=== PATIENT | female | born 1975 | race Caucasian/White ===

== ENCOUNTER 2019-05-03 22:23 | Emergency (ER) | payer OTHER ==
[2019-05-03 22:32] VITALS: TEMP 98.1; BMI 32.3
--- NOTE | 2019-05-03 23:02 | PDOC ---
History of Present Illness - General Chief Complaint: Urinary Problem Stated Complaint: ABD PAIN Time Seen by Provider: 05/03/19 23:01 History Source: Patient - History of Present Illness Initial Comments: 05/03/19 23:16 43 year old female c/o right groin pain radiating to back and right leg, patient reports that pain has been ongoing after menstrual period ends for the last three months and its always at the right groin. denies urinary symptoms. patient reports shes currently on antibiotics for a dental infection. 05/04/19 02:39 Past History - Past Medical History Allergies/Adverse Reactions: Allergies Allergy/AdvReac Type Severity Reaction Status Date / Time No Known Allergies Allergy Verified 05/04/19 01:35 Home Medications: Ambulatory Orders Albuterol Sulfate Inhaler - [Ventolin HFA Inhaler -] 2 inh PO Q4H PRN #1 inh NS 05/24/14 Asthma: Yes (NOT SINCE 2002) Cancer: No Cardiac Disorders: No COPD: No Diabetes: No HTN: No Seizures: No Thyroid Disease: No - Immunization History Immunization Up to Date: Yes - Suicide/Smoking/Psychosocial Hx Smoking History: Unknown if ever smoked Have you smoked in the past 12 months: No Information on smoking cessation initiated: No Hx Alcohol Use: No Drug/Substance Use Hx: No Hx Substance Use Treatment: No Review of Systems - Review of Systems Able to Perform ROS?: Yes Is the patient limited Turkish proficient: No Constitutional: No: Symptoms Reported, See HPI, Chills, Diaphoresis, Fever, Loss of Appetite, Malaise, Night Sweats, Weakness, Weight Stable, Unintentional Wgt. Loss, Unexplained wgt Loss, Other ABD/GI: Yes: Other (right pelvic pain) : No: Symptoms Reported, See HPI, Burning, Dysuria, Discharge, Frequency, Flank Pain, Hematuria, Incontinence, Pain, Urgency, Testicular Mass, Testicular Swelling, Lesions, Testicular Pain, Other *Physical Exam - Vital Signs Last Vital Signs Temp Pulse Resp BP Pulse Ox 98.1 F 86 16 146/90 100 05/03/19 22:29 05/03/19 22:29 05/03/19 22:29 05/03/19 22:29 05/03/19 22:29 - Physical Exam General Appearance: Yes: Appropriately Dressed Respiratory/Chest: positive: Lungs Clear, Normal Breath Sounds Gastrointestinal/Abdominal: positive: Normal Bowel Sounds, Tender (Right pelvic / RLQ) Musculoskeletal: negative: CVA Tenderness, CVA Tenderness (R) Extremity: positive: Normal Capillary Refill, Normal Inspection Integumentary: positive: Normal Color, Dry, Warm Neurologic: positive: motion picture critic II-XII NML intact, Fully Oriented, Alert, Normal Mood/ Affect Progress Note - Progress Note Progress Note: A: Pelvic pain P: UA Urine culture transvaginal US Medical Decision Making - Medical Decision Making 05/04/19 01:19 has right sided pelvic pain. will CTAP 05/04/19 02:39 Normal appendix No evidence of nephrolithiasis, ureterolithiasis, or obstructive uropathy. Small splenule within the splenic hilum. No evidence of intestinal obstruction, perforation, colitis, pancreatitis, acute diverticular disease, or an intra-abdominal or pelvic abscess No free fluid Small fat-containing umbilical hernia Sclerosis of the sacroiliac joints 0.4 cm subpleural nodule at the right lung base Small hiatal hernia No gallstones patient is feeling better *DC/Admit/Observation/Transfer Diagnosis at time of Disposition: Pelvic pain - Discharge Dispostion Disposition: HOME - Referrals Referrals: Terri Chin MD [Primary Care Provider] - - Patient Instructions Printed Discharge Instructions: DI for Pelvic Pain Additional Instructions: take ibuprofen every 6 hours as needed for pain 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
[2019-05-04 00:21] LABS: URINE APPEARANCE CLEAR; URINE BILIRUBIN NEGATIVE (NEGATIVE); URINE COLOR YELLOW; URINE GLUCOSE (UA) NEGATIVE (NEGATIVE); URINE KETONE TRACE (NEGATIVE); URINE LEUK ESTERASE NEGATIVE (NEGATIVE); URINE NITRITE NEGATIVE (NEGATIVE); URINE PROTEIN NEGATIVE (NEGATIVE); URINE UROBILINOGEN 0.2 mg/dL (0.2-1.0)
--- NOTE | 2019-05-04 00:24 | PDOC ---
*Physical Exam - Vital Signs Last Vital Signs Temp Pulse Resp BP Pulse Ox 98.1 F 86 16 146/90 100 05/03/19 22:29 05/03/19 22:29 05/03/19 22:29 05/03/19 22:29 05/03/19 22:29 ED Treatment Course - ADDITIONAL ORDERS Additional order review: Laboratory Results 05/04/19 00:00 Urine Color Yellow Urine Appearance Clear Urine pH 5.0 Ur Specific [place] 1.030 Urine Protein Negative Urine Glucose (UA) Negative Urine Ketones Trace H Urine Blood Negative Urine Nitrite Negative Urine Bilirubin Negative Urine Urobilinogen 0.2 Ur Leukocyte Esterase Negative Medical Decision Making - Medical Decision Making 05/04/19 00:23 Patient seen by the advanced practice provider under my direct supervision. Ancillary testing reviewed as necessary. I agree with plan as outlined by the advanced practice provider. *DC/Admit/Observation/Transfer Diagnosis at time of Disposition: Pelvic pain - Referrals Referrals: Terri Chin MD [Primary Care Provider] - - Patient Instructions - Post Discharge Activity
[2019-05-04] MEDS ORDERED: ACETAMINOPHEN 325 MG TABLET (FP) PO ONE (01:04)
[2019-05-04] MEDS ORDERED: ACETAMINOPHEN 325 MG TABLET (FP) ONE (01:14)
[2019-05-04 02:48] VITALS: BP 135/72; PULSE 79
== END 2019-05-04 02:45 | disposition home or self-care (01) ==
LOC: JER 22:23
DX: R10.2 Pelvic and perineal pain (principal); J45.909 Unspecified asthma, uncomplicated
CPT/HCPCS: 74176-TC; 76830-TC; 81003; 84703; 87086; 87186; 99283-25